=== PATIENT | female | born 1980 | race Caucasian/White ===

== ENCOUNTER 2024-05-02 04:22 | Emergency (ER) | payer OTHER, SELFPAY ==
--- NOTE | ~2024-05-02 | CT_ITS ---
EXAMINATION: CT ABDOMEN AND PELVIS WITH CONTRAST CLINICAL INFORMATION: Right lower quadrant pain COMPARISON: None available. TECHNIQUE: Multidetector volumetric images were obtained from the superior aspect of the liver through the pubic symphysis following administration 85 mL of Omnipaque 350 intravenous contrast. Sagittal and coronal reformatted images were obtained on the technologist's workstation. Oral contrast: No This CT examination was performed using dose optimization techniques as appropriate, variously including the following: *Automated exposure control *Adjustment of mA and/or kV according to patient size (this includes techniques or standardized protocols for targeted exams where dose is matched to indication/reason for exam; i.e. extremities or head) *Use of iterative reconstruction technique DLP: 807 mGy-cm FINDINGS: LUNG BASES: The visualized lung bases are unremarkable. LIVER, GALLBLADDER, AND BILIARY TREE: The liver is normal in size, shape, and attenuation. No focal hepatic lesion or biliary ductal dilatation is present. The gallbladder is surgically absent. PANCREAS: Unremarkable. SPLEEN: Unremarkable. ADRENAL GLANDS: Unremarkable. KIDNEYS AND URETERS: Abnormal. There is delayed right nephrogram with mild right hydronephrosis. Minimal right perinephric stranding seen. The right ureter is moderately distended down to the level of the right UVJ where a 2 mm stone is noted. No evidence for left or right nephrolithiasis or left hydronephrosis. Suspicious masses are not seen. BLADDER: Tiny stone at the right UVJ. GASTROINTESTINAL TRACT: Moderate stool burden in the right colon. Small hiatal hernia. No bowel obstruction or right or left lower quadrant inflammatory change. The appendix is not visualized. ABDOMINAL WALL: No significant hernia is appreciated. LYMPH NODES: Normal. VASCULAR: Unremarkable. PELVIC VISCERA: The uterus appears absent. No adnexal masses. OSSEOUS STRUCTURES: Kyphosis and spondylytic change observed in the lower thoracic spine. CT/CT abdomen pelvis w IV con IMPRESSION: Tiny stone right UVJ with resultant right ureteral pyelocaliectasis. Fleischner guidelines were followed. Electronically signed by: Je Swift MD 05/02/2024 08:37 AM EDT
--- NOTE | ~2024-05-02 | XR_ITS ---
EXAMINATION: XR CHEST CLINICAL INFORMATION: COVID-19 pneumonia COMPARISON: None available. TECHNIQUE: Frontal view of the chest was obtained. FINDINGS: HEART & VASCULARITY: There are normal cardiac size and pulmonary vascularity. LUNGS: Lungs are clear. No pneumothorax is seen. BONES: Bony skeleton is intact. XR/XR chest 1V IMPRESSION: Normal chest x-ray. Electronically signed by: Bri Cobb MD 05/02/2024 07:54 AM EDT
[2024-05-02 04:29] VITALS: BP 146/81; PULSE 52; RESP 18; TEMP 36.9; O2SAT 97; BMI 42.2
[2024-05-02 04:53] LABS: Appearance Urine Cloudy; Color Urine Yellow; Glucose Urine UA Negative (Negative); Leukocyte Esterase Urine Negative (Negative); Nitrite Urine Negative (Negative); Specific Gravity - Urine >= 1.030 (1.005-1.025); UMIC TRIGGER UACC YES; Urine Blood Small (1+) (Negative); Urine Ketones 15 mg/dL (Negative); Urine Protein 30 (1+) mg/dL (Neg-Trace)
--- NOTE | 2024-05-02 04:57 | ED_ITS ---
HPI - Abdominal Pain General Chief Complaint: Abdominal Pain Stated Complaint: Kidney Stone Time Seen by Provider: 05/02/24 04:57 Source: patient Mode of arrival: ambulatory Limitations: no limitations History of Present Illness ED Provider: vanda HPI narrative: Patient is status post cholecystectomy no history of kidney stone woke up from sleep with pain in the right lower abdomen and right mid abdomen intermittent pain comes and goes increases on ambulation no history of kidney stone no flank pain patient has vomited once before arrival patient is status post hysterectomy appendix still present no urinary complaint no hematuria no fever or chills Related Data Previous Rx's ?Medication ?Instructions ?Recorded ondansetron 4 mg disintegrating 4 mg PO Q6-8H PRN nausea and 05/02/24 tablet vomiting #10 tabs oxycodone 5 mg tablet 5 mg PO Q6H PRN pain #20 tabs 05/02/24 tamsulosin 0.4 mg capsule (Flomax) 0.4 mg PO BEDTIME #7 caps 05/02/24 Allergies Allergy/AdvReac Type Severity Reaction Status Date / Time environmental allergies Allergy Sneezing Verified 05/02/24 04:31 Review of Systems Review of Systems Yes all other systems are reviewed and are negative [facility] Social History Social History Smoked in Last 30 Days: No Use of substances other than those prescribed or required for medical reasons: Yes Substance Use Type: Marijuana Advance Directives: No Advance Directives Information Provided: Yes Do you have a plan to hurt others: No Plan Physical Exam ED Vital Signs: Vital Signs - 24 hr 05/02/24 04:29 Temperature 98.4 F Pulse Rate 52 Respiratory Rate 18 Blood Pressure 146/81 H Pulse Oximetry 97 Oxygen Delivery Method Room Air BMI result Body Mass Index 42.2 Appearance: Alert. Oriented X3. In mild distress Eyes: No pallor or icterus ENT: Pharynx normal. Oral Mucosa moist Neck: Normal inspection. Neck supple. CVS: Normal heart rate and rhythm. Pulses normal. Respiratory: No respiratory distress. Equal air entry bilateral, no wheezing/rales/rhonchi Abdomen: Soft tenderness right lower quadrant with guarding no rebound tenderness Bowel sounds are present, no mass palpable, no CVA tenderness Skin: Skin warm and dry. Normal skin color. Normal skin turgor. Extremities: No lower extremity edema. No calf tenderness Neuro: Oriented X 3. Medical Decision Making Medical Decision Making [facility] Narrative: Patient with right-sided pain CT scan showed right UVJ stone about 4 mm with mild hydro final report is pending will give Flomax pain control disposition after the final report of the CT scan Differential Diagnosis Differential Diagnoses: The differential diagnosis associated with the presentation includes Acute appendicitis/renal colic/UTI Lab Data [facility] Lab Attestation statement: I reviewed the patient's lab results. 05/02/24 05:25 05/02/24 05:25 Labs: Lab Results 05/02/24 05/02/24 05/02/24 Range/Units 04:46 05:21 05:25 WBC 12.2 H (4.8-10.8) X10*3/uL RBC 4.82 (4.20-5.50) X10*6/uL Hgb 14.1 (12.0-16.0) g/dl Hct 41.7 (37.0-47.0) % MCV 86.5 (80.0-98.0) fL MCH 29.3 (27.0-33.0) pg MCHC 33.8 (31.0-35.0) g/dl RDW 11.9 (11.0-16.0) % Plt Count 265 (160-400) X10*3/uL MPV 10.2 (9.4-12.3) fL Immature Gran % (Auto) 0.3 (0.0-0.4) % Neut % (Auto) 80.4 H (45-73) % Lymph % (Auto) 13.5 L (20-40) % [place] % (Auto) 3.4 (2-11) % Eos % (Auto) 1.9 (0-4) % Baso % (Auto) 0.5 (0-2) % Lymph # (Auto) 1.7 (1.2-4.9) X10*3/uL [place] # (Auto) 0.4 (0.1-1.2) X10*3/uL Eos # (Auto) 0.2 (0.0-0.4) X10*3/uL Baso # (Auto) 0.1 (0.0-0.2) X10*3/uL Abs Immat Gran (auto) 0.04 H (0.00-0.03) X10*3/uL Absolute Neuts (auto) 9.8 H (2.0-8.3) x10*3/uL Absolute Nucleated RBC 0.000 (0.0-0.012) X10*3/uL Nucleated RBC % (auto) 0.0 (0.0-0.2) /100WBC PT 11.6 (11.1-13.3) SEC INR 1.0 (0.9-1.1) Sodium 139 (135-145) mmol/L Potassium 4.1 (3.3-5.1) mmol/L Chloride 104 (96-108) mmol/L Carbon Dioxide 23 (22-29) mmol/L Anion Gap 16 (12-20) BUN 15 (9-16) mg/dL Creatinine 0.86 (0.5-1.4) mg/dL Estim Creat Clear Calc 95.7 Estimated GFR > 60 Random Glucose 120 H (60-115) mg/dL Calcium 9.1 (8.4-10.2) mg/dL Total Bilirubin 0.3 (0.0-1.0) mg/dL AST 32 H (5-31) U/L ALT 28 (0-31) U/L Alkaline Phosphatase 126 H (39-117) U/L Total Protein 7.2 (6.5-8.0) g/dL Albumin 4.0 (3.5-5.0) g/dL Urine Color Yellow Urine Appearance Cloudy Urine pH 6.0 (5.0-9.0) Ur Specific [place] >= 1.030 H (1.005-1.025) Urine Protein 30 (1+) H (Neg-Trace) mg/dL Urine Glucose (UA) Negative (Negative) mg/dL Urine Ketones 15 (Negative) mg/dL Urine Blood Small (1+) H (Negative) Urine Nitrite Negative (Negative) Ur Leukocyte Esterase Negative (Negative) Urine RBC 0-2 (0-2) /HPF Urine WBC 0-5 (0-5) /HPF Ur Squamous Epith Cells 6-10 (0-2) /HPF Calcium Oxalate Crystal Present Urine Bacteria None Seen (None Seen) Hyaline Casts 0-2 (0-2) /LPF COVID-19 (ANALIA) Negative (Negative) COVID-19 Clin Com See Note Independent Interpretation I performed an independent interpretation of an: CT Scan Interpretation: Right UVJ stone with hydro nephrosis Medications Administered Discontinued Medications Generic Name Dose Route Start Last Admin Trade Name Freq PRN Reason Stop Dose Admin Sodium Chloride 1,000 mls @ 999 mls/hr 05/02/24 05:14 05/02/24 05:38 Ns IV 05/02/24 06:14 999 mls/hr .Q1H1M ONE Administration Iohexol 85 ml 05/02/24 06:22 05/02/24 06:23 Iohexol 350 Mg/Ml 100 Ml Infus..Btl IV 05/02/24 06:23 85 ml ONCE ONE Administration Ketorolac Tromethamine 30 mg 05/02/24 06:30 05/02/24 06:35 Ketorolac Tromethamine 30 Mg/Ml Vial IVPUSH 05/02/24 06:31 30 mg ONCE ONE Administration Morphine Sulfate 4 mg 05/02/24 05:14 05/02/24 05:38 Morphine Sulfate 4 Mg/Ml Cartridge IVPUSH 05/02/24 05:15 4 mg ONCE ONE Administration Protocol Ondansetron HCl 4 mg 05/02/24 05:14 05/02/24 05:38 Ondansetron Hcl 4 Mg/2 Ml Vial IVPUSH 05/02/24 05:15 4 mg ONCE ONE Administration Tamsulosin HCl 0.4 mg 05/02/24 06:29 05/02/24 06:36 Tamsulosin Hcl 0.4 Mg Capsule PO 05/02/24 06:30 0.4 mg ONCE ONE Administration Discharge Plan Discharge Clinical Impression: Calculus of kidney Patient Disposition: Home, Self-Care Instructions: Kidney Stones (ED), Low Oxalate Diet (ED) Additional Instructions: Drink plenty of fluids Avoid food containing oxalate Pain medication and Flomax as prescribed Follow with urologist if not better Prescriptions: New oxycodone 5 mg tablet 5 mg PO Q6H PRN (Reason: pain) Qty: 20 0RF Rx Instructions: Partial Fill upon patient request. tamsulosin [Flomax] 0.4 mg capsule 0.4 mg PO BEDTIME Qty: 7 0RF ondansetron 4 mg tablet,disintegrating 4 mg PO Q6-8H PRN (Reason: nausea and vomiting) Qty: 10 0RF Referrals: Oc Roth MD [Physician] - 1 week Print Language: Luxembourgish
[2024-05-02 05:14] LABS: Bacteria Urine None Seen (None Seen); Calcium Oxalate Crystals Urine Present; Hyaline Casts Urine 0-2 /LPF (0-2); RBC Urine 0-2 /HPF (0-2); WBC Urine 0-5 /HPF (0-5)
--- OUTSIDE RECORDS SUMMARY | 2024-05-02 05:22 | XMS_ITS | Continuity of Care Document ---
Demographics Address [birth year][address] [address] Mobile Preferred Language Japanese Marital Status Unknown Judaism Affiliation Unknown Race Unknown Ethnic Group Unknown Author Organization [facility] Address [address] [place] [id number] Care Team Providers Care Java Support Engineer Name Role Phone Bekah Gagnon MD Primary Care Physician Encounter [facility] [place] Date(s): 10/21/23 - 11/20/23 [facility] [address] [place] [id number] Patient Care team information Care Team Personnel Name: Bekah Gagnon MD Position: Reference Physician Member Role: PCP Address: Address: [address] [place], [place] [address]
[2024-05-02 05:31] LABS: Basophils Absolute Auto 0.1 X10*3/uL (0.0-0.2); Basophils Percent Auto 0.5 % (0-2); Eosinophils Absolute Auto 0.2 X10*3/uL (0.0-0.4); Eosinophils Percent Auto 1.9 % (0-4); Hematocrit 41.7 % (37.0-47.0); Hemoglobin 14.1 g/dl (12.0-16.0); Imm Gran Abs Auto 0.04 X10*3/uL (0.00-0.03); Imm Gran Pct Auto 0.3 % (0.0-0.4); Lymphocytes Absolute Auto 1.7 X10*3/uL (1.2-4.9); Lymphocytes Percent Auto 13.5 % (20-40); MANUAL DIFF FLAG NO; Mean Corpuscular HGB Conc 33.8 g/dl (31.0-35.0); Mean Corpuscular Hemoglobin 29.3 pg (27.0-33.0); Mean Corpuscular Volume 86.5 fL (80.0-98.0); Mean Platelet Volume 10.2 fL (9.4-12.3); Monocytes Absolute Auto 0.4 X10*3/uL (0.1-1.2); Monocytes Percent Auto 3.4 % (2-11); Neutrophils Absolute Auto 9.8 x10*3/uL (2.0-8.3); Neutrophils Percent Auto 80.4 % (45-73); Platelet Count 265 X10*3/uL (160-400); Red Blood Count 4.82 X10*6/uL (4.20-5.50); Red Cell Distribution Width 11.9 % (11.0-16.0); White Blood Count 12.2 X10*3/uL (4.8-10.8)
[2024-05-02 05:37] LABS: Prothrombin Time 11.6 SEC (11.1-13.3)
[2024-05-02] MEDS: Morphine Sulfate 4 MG/ML CARTRIDGE IVPUSH (05:38)
[2024-05-02] MEDS: ondansetron HCL 4 MG/2 ML VIAL IVPUSH (05:38)
[2024-05-02] MEDS: 0.9 % Sodium Chloride 1,000 ML 999 ML IV ×2 (05:38→07:38)
[2024-05-02 05:46] LABS: Alanine Aminotransferase 28 U/L (0-31); Alkaline Phosphatase 126 U/L (39-117); Anion Gap 16 (12-20); Aspartate Amino Transferase 32 U/L (5-31); Bilirubin Total 0.3 mg/dL (0.0-1.0); Blood Urea Nitrogen 15 mg/dL (9-16); Calcium 9.1 mg/dL (8.4-10.2); Carbon Dioxide 23 mmol/L (22-29); Chloride 104 mmol/L (96-108); Creatinine Clr Calc Pharmacy 95.7; Estimated Glomerular Filt Rate > 60; Glucose Random 120 mg/dL (60-115); Potassium 4.1 mmol/L (3.3-5.1); Sodium 139 mmol/L (135-145); Total Protein 7.2 g/dL (6.5-8.0)
[2024-05-02 05:55] LABS: COVID-19 Test Negative (Negative); IDNOW Serial# 6674DD1D
[2024-05-02] MEDS: iohexoL 350 MG/ML 100 ML INFUS..BTL 85 ML IV (06:23)
[2024-05-02] MEDS: Ketorolac Tromethamine 30 MG/ML VIAL IVPUSH (06:35)
[2024-05-02] MEDS: Tamsulosin HCL 0.4 MG CAPSULE PO (06:36)
--- NOTE | 2024-05-02 06:55 | PC.NURSE ---
report given to Sheryl ALLEN
[2024-05-02 07:36] VITALS: BP 127/74; PULSE 48; RESP 14; TEMP 36.2; O2SAT 97
[2024-05-02 09:21] VITALS: BP 137/80; PULSE 68; RESP 18; TEMP 36.7; O2SAT 98
[2024-05-02 09:22] VITALS: BP 137/80; PULSE 68; RESP 18; TEMP 36.7; O2SAT 98
== END 2024-05-02 09:40 | disposition home or self-care (01) ==
PROVIDERS: Emergency Provider Internal Medicine
DX: N20.0 Calculus of kidney (principal); R10.31 Right lower quadrant pain; R06.02 Shortness of breath; R11.10 Vomiting, unspecified; Z11.52 Encounter for screening for COVID-19; Z79.899 Other long term (current) drug therapy
CPT/HCPCS: 36415; 71045; 74177; 80053; 81001; 85025; 85610; 87635; 96361; 96374; 96375; 99284; J1885; J2270; J2405; Q9967

== ENCOUNTER 2024-06-14 12:54 | Outpatient (AMB) | payer OTHER, SELFPAY ==
--- NOTE | 2024-06-14 13:01 | MHC.OFFVIS ---
Intake Visit Reasons: [facility] [place] [facility] Int[place] Note: New patient is present for [facility] Follow up 05/02/2024 Nephrolithiasis Urology Med: Tamsulosin Antibiotic Allergies:None Blood Thinner:None Document Processor Required: No Accompanied by: Self / Same As Patient Allergies environmental allergies Allergy (Verified 06/14/24 13:10) Sneezing HPI Comments Details: Kourtney is a pleasant female. She is a patient of Dr. Gagnon. She is seen for the following urologic conditions - nephrolithiasis First-time stone former Imaging only showed single stone Responded to medical expulsion therapy Nephrolithiasis Presentation through [facility] 05/23 Imaging - CT with 3 mm distal right ureteric stone and hydroureteronephrosis Responded to medical expulsion therapy Discussed stone triggers 64 oz water per day 1 oz lemon juice per day 15 mg daily vitamin B6 if she is so inclined Interval surveillance with repeat ultrasound in 6 months. Would then imaged yearly for 4 years. ON LICENSE OF [facility] Medical History (Updated 06/14/24 @ 13:10 by BALJEET Crawford) IBS (irritable bowel syndrome) Surgical History (Updated 06/14/24 @ 13:11 by BALJEET Crawford) History of removal of both ovaries Social History Substance Use Type: Marijuana Review of Systems Const Denies chills and Denies fever(s) Card Reports no additional complaints and Denies syncope Resp Denies cough GI Denies abdominal pain and Denies heartburn Reports as per HPI and Denies change in libido Neuro Denies syncope Psych Denies change in libido Endo Denies change in libido Physical Exam Const General: cooperative, healthy appearing, comfortable and no acute distress Orientation/consciousness: patient oriented x3 HEENT Face and sinus: Yes normal facial exam Mouth: moist mucous membranes Neck Neck: Yes normal visual inspection, Yes full ROM and Yes trachea midline Chest Chest palpation & inspection: normal inspection of the chest Resp Effort & Inspection: normal respiratory effort, able to speak in complete sentences and no respiratory distress GI Inspection: Yes normal to inspection Back/Spine/Pelvis Cervical Spine: normal cervical lordosis Thoracic/Lumbar Spine: thoracic and lumbar spine normal to inspection Skin General skin exam: no rashes or lesions noted Neuro General: patient oriented x3, gait normal, tone normal and moves all extremities Extrem General: Yes normal to inspection and Yes capillary refill normal Assessment & Plan Assessment & Plan (1) Calculus of kidney: Code(s): N20.0 - Calculus of kidney Category: Medical Plan Six-month follow-up renal ultrasound Patient Instructions: Imaging studies, laboratory and physical exam results were discussed and reviewed in detail. No major barriers to patient understanding were identified. An opportunity to ask questions regarding the treatment plan was provided. All questions were answered. The patient expressed understanding and agreement with the above treatment plan. The patient is aware they should contact our office by phone for worsening of their current condition or the appearance of new urologic symptoms. Compliance is encouraged with any medications and followup testing that is ordered. It is a privilege to participate in the urologic care of your patient. If you have any questions or concerns regarding treatment for the above conditions, or other urologic issues, please do not hesitate to contact me. The office telephone contact is [phone]. This note is constructed using voice recognition software. While every effort has been made to ensure accuracy shell core and molding supervisor errors may have been included. Yours sincerely, Dr Oc Roth MD, [facility] - Urology Providers of Expert, Compassionate Care for the Genitourinary System Coding Level of Care Code New Pt Level 3 (85824) Diagnoses Calculus of kidney N20.0
== END 2024-06-14 14:09 | disposition home or self-care (01) ==
PROVIDERS: PCP Family Medicine; Visit Provider Urology
DX: N20.0 Calculus of kidney (principal)
CPT/HCPCS: 99203

== ENCOUNTER → 2024-06-14 12:54 | Outpatient (BNVA) | payer OTHER, SELFPAY | PROVIDERS: PCP Family Medicine; Visit Provider Urology ==